=== PATIENT | female | born 1965 | race Caucasian/White ===

== ENCOUNTER 2022-03-11 17:19 | Emergency (ER) | payer OTHER ==
--- NOTE | 2022-03-11 18:23 | ERPHSYRPT ---
- History of Present Illness Time Seen by Provider: 03/11/22 18:15 Source: patient Exam Limitations: no limitations Patient Subjective Stated Complaint: pt reports difficulty walking or bearing weight without pain, states approx one month ago she injured her back and di adams today has a sharp pain in her right groin area. pt does not have pain unless she is bearing weight Triage Nursing Assessment: pt is aox3, afebrile, resps easy and non labored, cap refill < 3 seconds, pt skin pink warm dry. pt ROM sensation intact. pt is able to stand and pivot to bed. Physician History: This is a 57-year-old obese white female who approximately 1 month ago strained her back. She never received or obtained any x-rays of her lower spine. Out of the blue, few days ago, patient began having right groin pain. Patient states the right groin pain is significant when bearing weight. When laying flat or sitting there pain is not significant. Patient denies any fall or injury. On 03/08/2022 patient was placed on prednisone and Flexeril to help with her pain and also to be used for foot issues. Method of Injury: unknown Quality: aching Severity of Pain-Max: moderate (When ambulating) Severity of Pain-Current: moderate (When ambulating) Lower Extremities Pain: other: right (Groin) Modifying Factors: Improves With: movement Associated Symptoms: other (Hurts to bear weight when she is up and ambulating) Hx Tetanus, Diphtheria Vaccination/Date Given: Yes Hx Influenza Vaccination/Date Given: Yes Hx Pneumococcal Vaccination/Date Given: No Immunizations Up to Date: Yes Travel Risk - International Travel Have you traveled outside of the country in past 3 weeks: No - Coronavirus Screening Are you exhibiting any of the following symptoms?: No Close contact with a COVID-19 positive Pt in past 14-21 Days: No - Vaccine Status Have you recieved a Covid-19 vaccination: Yes 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 - Vaccination Dates Date of 2cond Vaccination (if applicable): unk - Review of Systems Constitutional: No Symptoms Eyes: No Symptoms Ears, Nose, & Throat: No Symptoms Respiratory: No Symptoms Cardiac: No Symptoms Abdominal/Gastrointestinal: No Symptoms Genitourinary Symptoms: Other (Right groin pain when up and ambulating) Musculoskeletal: Other (Groin pain when up and ambulating) Skin: No Symptoms Psychological: No Symptoms Endocrine: No Symptoms Hematologic/Lymphatic: No Symptoms Immunological/Allergic: No Symptoms All Other Systems: Reviewed and Negative - Past Medical History Neurological History: No Pertinent History Cardiac History: Hypertension Respiratory History: Other Endocrine Medical History: No Pertinent History Musculoskeletal History: Other Other Medical History: HAD COVID LAST SEPTEMBER. NO RESIDUAL EFFECTS. FULLY VACCINATED. - Past Surgical History Past Surgical History: Yes - Social History Smoking Status: Never smoker Exposure to second hand smoke: No Drug Use: none Patient Lives Alone: No - Nursing Vital Signs Nursing Vital Signs: Initial Vital Signs Temperature 97.6 F 03/11/22 18:01 Pulse Rate 53 L 03/11/22 18:01 Respiratory Rate 18 03/11/22 18:01 Blood Pressure 189/60 03/11/22 18:01 O2 Sat by Pulse Oximetry 98 03/11/22 18:01 Pain Scale Pain Intensity 0 - Physical Exam General Appearance: no apparent distress, alert, anxiety, obese Eyes, Ears, Nose, Throat Exam: normal ENT inspection, moist mucous membranes Neck Exam: normal inspection, non-tender, supple, full range of motion Cardiovascular/Respiratory Exam: chest non-tender, no respiratory distress Gastrointestinal/Abdominal Exam: non-tender Back Exam: normal inspection, normal range of motion, muscle spasm, No CVA tenderness, No vertebral tenderness Hips Exam: right: other (Right groin pain to palpation. No inguinal hernia present.) Legs Exam: bilateral leg: non-tender, normal inspection, normal range of motion, no evidence of injury Knees Exam: bilateral knee: non-tender, normal inspection, normal range of motion, no evidence of injury Ankle Exam: bilateral ankle: non-tender, normal inspection, normal range of motion, no evidence of injury Foot Exam: bilateral foot: non-tender, normal inspection, normal range of motion, no evidence of injury Neuro/Tendon Exam: normal sensation, normal motor functions, normal tendon functions Mental Status Exam: alert, oriented x 3, cooperative Skin Exam: normal color, warm, dry SpO2 Interpretation: normal SpO2: 98 O2 Delivery: Room Air - Course Nursing assessment & vital signs reviewed: Yes Ordered Tests: Active Orders 24 hr Category Date Time Status LUMBAR LIMITED (2 OR 3 VIEWS) Stat Exams 03/11/22 18:23 Ordered PELVIS (1 OR 2 VIEWS) Stat Exams 03/11/22 18:23 Ordered - Progress Progress: improved, pain not gone completely, re-examined Progress Note: 03/11/22 18:57 X-ray of lumbar spine shows no acute fracture or subluxation. Pelvic x-ray shows no acute fracture or dislocation. - Departure Departure Disposition: Extended Care Facility Clinical Impression: Right groin pain, Low back pain Condition: Stable Critical Care Time: No Referrals: JANNIE PALMA, [facility] [employer] [employer] [Primary Care Provider] - Follow up/PCP as directed Additional Instructions: Take your medication as prescribed. Follow-up with your prescribing provider tomorrow by phone for further evaluation and management. Forms: Work/School Release Form Prescriptions: Oxycodone HCl/Acetaminophen [Percocet 5-325 mg Tablet] 1 each PO Q8H PRN PRN #6 tablet MDD 3 PRN Reason: Moderate To Severe Pain
[2022-03-11] MEDS ORDERED: ZOFRAN ODT 4 MG PO ONE (19:03)
[2022-03-11] MEDS ORDERED: Hydromorphone 1 mg/ml Injection IM ONE (19:03)
[2022-03-11] MEDS ORDERED: Norflex 60 MG/2 ML IM ONE (19:03)
[2022-03-11] MEDS ORDERED: ZOFRAN ODT 4 MG ONE (19:10)
[2022-03-11] MEDS ORDERED: Norflex 60 MG/2 ML ONE (19:11)
[2022-03-11] MEDS ORDERED: Hydromorphone 1 mg/ml Injection ONE (19:11)
[2022-03-11 19:31] VITALS: PULSE 52; O2SAT 100
[2022-03-11 19:35] VITALS: BP 165/79
--- NOTE | 2022-03-12 08:39 | XRAY ---
Indication: Pain. No known injury. Comparison: None 3 view lumbar spine demonstrates 5 lumbar segments in normal alignment with mild osteopenia, minimal multilevel thoracolumbar degenerative spondylosis, remote L2 superior endplate fracture with approximately 25% height loss, and mild scattered vascular calcifications. No other bony, articular, or soft tissue abnormalities.
--- NOTE | 2022-03-12 08:39 | XRAY ---
Indication: Pain. No known injury. Comparison: None Single AP pelvis demonstrates mild osteopenia and lumbar degenerative changes report separately. No other bony, articular, or soft tissue abnormalities.
== END 2022-03-11 19:42 | disposition home or self-care (01) ==
LOC: ED 17:19
DX: R10.30 Lower abdominal pain, unspecified (principal); M54.50 Low back pain, unspecified; I10 Essential (primary) hypertension; Z86.16 Personal history of COVID-19; Z79.891 Long term (current) use of opiate analgesic
CPT/HCPCS: 72100; 72170; 96372; 99284; J1170; J2360; Q0162